=== PATIENT | male | born 1960 | race Caucasian/White ===

== ENCOUNTER 2022-04-06 08:36 | Day surgery (SDC) | payer OTHER ==
[2022-04-06 09:11] LABS: MPV 7.6 fL (7.6-11.3)
[2022-04-06 09:16] LABS: Protime INR 0.96
[2022-04-06 09:21] VITALS: BMI 26.6
--- NOTE | 2022-04-06 12:46 | RAD REPORT ---
EXAM DESCRIPTION: RAD - Myelography C Spine - 04/06/2022 11:16 am CLINICAL HISTORY: M54.12 COMPARISON: No comparisons TECHNIQUE: Patient presents for fluoroscopic assisted cervical myelogram. The procedure, risks and alternatives were discussed with the patient in detail. After answering all questions both oral and written consent were obtained. Patient had no contraindicated allergy or medi cation history. PT/INR/ platelet values were within normal range. The patient is approximately 2 months status post L5-S1 fusion. Design Analyst images show fixation hardware i n place with no suspicious or unexpected finding. Patient was placed in an oblique prone position on the fluoroscopic table. Access site was selected. The skin of the lower back was prepped and draped in the usual sterile fashion. Skin and deeper tissu es were anesthetized with 1% lidocaine. Under fluoroscopic assistance, a 22 gauge spinal needle was a dvanced into the thecal sac at the L3 level. Intrathecal placement was confirmed with clear colorless CSF observed at the needle hub. Approximately 12 mL of Isovue-M 200 contrast material was injected i nto the thecal sac. Needle was withdrawn and sterile bandage placed to the puncture site. Due to patient's previous surgical hardware and limited range of motion, contrast could not be transf erred to the cervical canal wall on the fluoroscopic table. Patient was transferred to the stretcher and placed in Trendelenburg. Procedure was completed without complication. Postprocedure care and precaution instructions were dis cussed with the patient. Patient was transferred to the CT suite for CT imaging. IMPRESSION: Cervical myelogram procedure was performed as detailed. There were no complications. Pat ient was recovering in the same-day surgery area at the time of this dictation. Myelogram findings are incorporated into the CT cervical spine report.
[2022-04-06 14:31] VITALS: O2SAT 99
[2022-04-06 14:32] VITALS: BP 128/76; TEMP 97
--- NOTE | 2022-04-07 09:31 | RAD REPORT ---
EXAM DESCRIPTION: CT - Myelogram C Spine - 04/06/2022 11:36 am CLINICAL HISTORY: M54.12 COMPARISON: No prior imaging the cervical spine available. TECHNIQUE: A myelogram procedure was performed prior to this CT procedure. The myelogram procedure i s separately detailed. Patient was placed in a supine Trendelenburg position to transfer the contrast from the lumbar spine to the cervical spine. Test imaging showed adequate quantity of contrast in th e cervical canal. Axial 2 mm thick images of the cervical spine were obtained and extended to occlude the upper 4 thora cic vertebrae. Sagittal and coronal reconstruction images were generated and reviewed. All CT scans are performed using dose optimization technique as appropriate and may include automated exposure control or mA/KV adjustment according to patient size. FINDINGS: Cervical body height and alignment are normal. There are [address] spanning C3-C7. There is well-healed graft material in the disc spaces from C3-4 through C6-7. Bridging ossif ication fusing the disc levels is identifiable. No hardware fracture or hardware alignment abnormalit y. C2-3 disc level shows a slight loss in disc height. No herniation or disc bulge in the central canal. No foraminal stenosis identified. C3-4 fused level shows no spinal stenosis. No disc or bone spur changes into the central canal. Minim al right foraminal stenosis present from uncovertebral joint hypertrophy. C4-5 fused level shows no central spinal stenosis. No bone spurring encroaching into the central doreen l. Bilateral uncovertebral joint hypertrophy is present causing moderate foraminal stenosis. Facet de generative changes minimal. C5-6 fused level shows no stenosis or significant central canal finding. No significant foraminal sai nosis. C6-7 fused level shows no encroachment into the central canal. No significant foraminal stenosis. C7-T1 level shows loss in height. No central canal encroachment. Focal rounded hypointense area in th e posterior subarachnoid space is air from the myelogram injection. In the cervical canal the cord shows no narrowing or expansile change. No paraspinal mass or hematoma. IMPRESSION: C3-C7 well-healed fusion changes are present. No encroachment into the central canal at the fused disc levels. C4-5 moderate bilateral foraminal stenosis from uncovertebral joint hypertrophy. C3-4 minimal right f oraminal stenosis from uncovertebral joint hypertrophy. Cervical cord shows no narrowing or expansile change.
== END 2022-04-06 14:48 | disposition home or self-care (01) ==
LOC: DS 08:36
PROVIDERS: ATTEND Orthopaedic Surgery
DX: M43.16 Spondylolisthesis, lumbar region (principal); M54.16 Radiculopathy, lumbar region; M54.2 Cervicalgia; M79.602 Pain in left arm; M79.601 Pain in right arm
CPT/HCPCS: 36415; 85049; 85610; 85730; 72126; 62302; Q9966

== ENCOUNTER 2022-04-12 07:04 | Day surgery (SDC) | payer OTHER ==
[2022-04-06 13:53] LABS: Absolute Lymphocytes (CBC) 1.6 K/uL (0.7-4.9); Hematocrit 41.6 % (39.6-49.0); MCV 88.9 fL (80-100); MPV 7.8 fL (7.6-11.3); RBC Red Blood Cell Count 4.68 M/uL (4.33-5.43)
[2022-04-06 14:05] LABS: Potassium 3.7 mmol/L (3.5-5.1)
[2022-04-06 14:59] LABS: Specific Gravity 1.015 (1.005-1.030); Urine Bilirubin Negative (Negative); Urine Blood Negative (Negative); Urine Clarity Clear (Clear); Urine Color Yellow (Yellow); Urine Glucose Negative (Negative); Urine Protein Negative (Negative); Urine pH 6.5 (5.0-7.0)
[2022-04-06 15:00] LABS: Urine Urobilinogen 0.2 mg/dL (0.2-1.0)
--- NOTE | 2022-04-07 15:13 | EKG ---
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
[2022-04-08 12:38] LABS: SARS-CoV-2 Antigen Rapid Res Negative (Negative)
[~2022-04-12 07:04] MED LIST: AMPICILLIN SODIUM 2 GM in NA CHLORIDE 0.9% 100 ML IVPB ONE; Gentamicin Inj 160 MG in NA CHLORIDE 0.9% 100 ML IV SCH
[2022-04-12] MEDS ORDERED: Ringers Lactate 1,000 ML IV ONE (07:42)
[2022-04-12] MEDS ORDERED: propofoL 200 MG/20 ML VIAL IV ONE (08:08)
[2022-04-12] MEDS ORDERED: FENTANYL CITR 100 MCG/2 ML ONE (08:08)
[2022-04-12] MEDS ORDERED: MIDAZOLAM HCL 2 MG/2 ML INJ ONE (08:10)
[2022-04-12] MEDS ORDERED: LIDOCAINE 1% MPF 5 ML VIAL ONE (08:10)
[2022-04-12] MEDS ORDERED: SCOPOLAMINE HYDROBROMIDE PATCH TD ONE (08:14)
[2022-04-12] MEDS ORDERED: dexAMETHasone 10 MG/ML VIAL ONE (09:07)
[2022-04-12] MEDS ORDERED: KETOROLAC 30 MG/ML INJ ONE (09:07)
[2022-04-12] MEDS ORDERED: ONDANSETRON 4 MG/2 ML VIAL ONE (09:22)
[2022-04-12] MEDS ORDERED: NS 0.9% VIAL 10 ML ONE (09:27)
[2022-04-12] MEDS ORDERED: OPIUM/BELLADONNA SUPPOS (30-16.2 MG) PR ONE ×2 (10:18→10:25)
[2022-04-12] MEDS ORDERED: CODEINE 30MG/APAP 300MG TAB PO PRN (10:25)
[2022-04-12] MEDS ORDERED: PHENAZOPYRIDINE 100MG TAB PO ONE (10:25)
[2022-04-12 10:52] VITALS: BP 146/81; TEMP 98.4; O2SAT 99
--- NOTE | 2022-04-12 10:53 | OP ---
Surgeon: DAYTON CHEUNG Preoperative Diagnoses: 1.Benign prostatic hypertrophy with irritative lower urinary tract symptoms. 2.Intravesical bladder calculi. 3.Foreign body intruding into the bladder/urolith reinaldo. Postoperative Diagnoses: 1.Benign prostatic hypertrophy with irritative lower urinary tract symptoms. 2.Intravesical bladder calculi. 3.Foreign body intruding into the bladder/urolith reinaldo. Principal Procedures: 1.Holmium laser removal/excision of the intravesically intruding urolith reinaldo. 2.Removal of bladder calculi and urolith reinaldo from within the bladder. 3.Bipolar transurethral resection of the prostate. Indication For Procedure: Mr. Stephenson presented to the [facility] with persistent irritative lower urinary symptoms and underwent cystoscopic evaluation revealing the presence of intravesical bladder calculi associated with some intruding urolith reinaldo within the bladder lumen. Three reinaldo were noted in the bladder lumen at the 10-11 o'clock position, the 1 o'clock position, and the 7 o'clock p osition. As a result, he was counseled on the need to remove these foreign bodies as they were likel y the source of his irritative urinary symptoms, and since there was residual obstruction due to BPH, I recommended we also manage that. Procedure In Detail: The patient was consented in the preoperative holding area before being transfe rred to the operative suite where general anesthesia was induced. He was given ampicillin 2 g and ge ntamicin 2-3 mg/kg IV antimicrobial prophylaxis, and pneumo boots were provided for DVT prophylaxis. He was placed in the lithotomy position, padded and secured to the table appropriately, and his keiko payton was prepped using Hibiclens. He was draped in standard fashion, and the case was begun using u rethral sounds to dilate the meatus and fossa navicularis to 30-Afghan. I was then able to pass the 26-Afghan resectoscope via the urethra into his bladder with ease. The bladder was surveyed in its e ntirety, and along the bladder neck anteriorly where the first 2 urolith reinaldo identified. As such , using a 365 nm laser fiber and power setting of 1 joule and 15 Hz, I was able to target the staple and its attaching suture, dividing it and releasing the staple into his bladder. This was done for b oth of the anterior reinaldo, and then, I surveyed the remainder of the bladder having difficulty iden tifying the posterior staple using the 30 degree lens. As such, I switched to the cystoscope and a 7 0 degree lens and was able to identify the posterior staple at the 7 o'clock position, kind of imbedd ed just within the intravesical component of the sulcus next to the median lobe. As a result, I was then able to utilize the laser to release this staple from its position in that location and each of those reinaldo were grasped and removed from within his bladder. The subsequent bladder calculi were Ellik evacuated from his bladder and sent for pathologic identification. Because there was some resi dual obstruction noted with significant residual anterior overhang, an intravesically small but proje cting component of a median lobe despite reasonably good lateral lobar retraction from the other urol ith reinaldo, I then replaced the bipolar resectoscope and utilized the bipolar loop to create a amisha nuous anterior channel by resecting the anterior zone of the prostate down to the 2 o'clock and 10 o' clock positions, respectively. This was done to try to preserve his antegrade ejaculation. Once a n ice anterior channel had been created, I surveyed the prostatic fossa with the bladder decompressed, and the intravesically projecting component of the median lobe was still somewhat obstructive in appe arance, so I resected that component of the median lobe just down until it was smooth and no longer o bstructing. No effort was made to complete a full posterior channel resection of the median bar down to the level of the verumontanum in an effort to try to preserve his antegrade ejaculation. I then fulgurated any and all bleeding vessels and Radha evacuated any prostate chips from within his bladde r. Additional fulguration was performed with the bladder decompressed, and when completely hemostati c, I left his bladder full and removed the resectoscope, then replacing it with a 20-Afghan 3-way Fol ey catheter. This was connected to CBI with normal saline and was placed to moderate traction. He w as then taken out of the lithotomy position, awakened from general anesthesia, transferred to a [facility] and then transferred to the recovery room in good condition. Complications: None. Discharge Disposition: He may follow up for catheter removal and voiding trial on and will be discharged with 3 days of antimicrobial. Subsequent followup can be established in about 3 months ' time interval assessment. OLIVIA/TERRY Voice ID: [id number] Report ID: [id number]
[2022-04-12] MEDS ORDERED: CODEINE 30MG/APAP 300MG TAB ONE (11:19)
== END 2022-04-12 12:00 | disposition home or self-care (01) ==
LOC: OR 07:04
PROVIDERS: ATTEND Urology
PROC: 0VT08ZZ Resection of Prostate, Via Natural or Artificial Opening Endoscopic (ICD-10-PCS; principal; 2022-04-12 09:15)
PROC: 0TCB8ZZ Extirpation of Matter from Bladder, Via Natural or Artificial Opening Endoscopic (ICD-10-PCS; 2022-04-12 09:15)
DX: N40.1 Benign prostatic hyperplasia with lower urinary tract symptoms (principal); N21.0 Calculus in bladder; Z20.822 Contact with and (suspected) exposure to COVID-19; I10 Essential (primary) hypertension; I25.10 Atherosclerotic heart disease of native coronary artery without angina pectoris
CPT/HCPCS: 52601; 93005; 87088; 85025; 87086; 80048; 36415 ×2; 88300; 88305; 81003; 87811; 52310; J2704; J1580; J2250; J3010; J1100; J7120; J2405; J0290; A4216; J2001

== ENCOUNTER 2022-09-28 08:36 | Day surgery (SDC) | payer OTHER ==
[2022-09-28 10:00] VITALS: O2SAT 96; BMI 27.3
[2022-09-28 10:10] LABS: MPV 7.7 fL (7.6-11.3)
[2022-09-28 10:19] LABS: Protime INR 1.06
--- NOTE | 2022-09-28 14:20 | RAD REPORT ---
EXAM DESCRIPTION: RAD - Myelography Lumbar - 09/28/2022 12:02 pm CLINICAL HISTORY: Back pain. Leg pain and weakness. Radiculopathy. Lumbar fusion 8 months ago. COMPARISON: None. TECHNIQUE: The procedure, risks and alternatives to the procedure were discussed with the patient in detail. After answering all questions, both oral and written consent were obtained. Time-out procedu re was performed. The patient was placed in an oblique prone position on the fluoroscopic table. The skin of the lower back was prepped and draped in the usual sterile fashion. After anesthetizing the skin and deeper sof t tissues with 1% lidocaine, a 22 gauge needle was advanced into the thecal sac at the right L3-4 lev el. When CSF return was observed, 11 mL of Isovue 200 were injected intrathecally under direct fluoroscop y. Appropriate opacification of the thecal sac was observed. At the conclusion of the procedure the needle was withdrawn and a sterile bandage placed over the pun cture site. The patient tolerated the procedure well without immediate complications. Post-procedure care and precaution instructions were discussed with the patient before the myelography procedure. FINDINGS: Normal opacification of the thecal sac above and below the level of the lumbar puncture. No abnormal contrast column arrest. No significant attenuation of the perineural sleeves, although th is was better evaluated on subsequent CT myelography. IMPRESSION: Successful fluoroscopic guided lumbar myelogram. The patient was transported to the [facility], where a lumbar myelogram was obtained, reported separately.
--- NOTE | 2022-09-28 15:04 | RAD REPORT ---
EXAM DESCRIPTION: CT - Spine Lumbar Wo Con - 09/28/2022 12:02 pm CLINICAL HISTORY: Radiculopathy. myelogram COMPARISON: Myelography Lumbar dated 09/28/2022; Myelogram C Spine dated 04/06/2022 TECHNIQUE: Axial noncontrast CT imaging of the lumbar spine was performed with coronal and sagittal re-formatted images, following intrathecal administration of iodine contrast. Fluoroscopically guided myelogram is reported separately. All CT scans are performed using dose optimization technique as appropriate and may include automated exposure control or mA/KV adjustment according to patient size. FINDINGS: No acute lumbar spine fracture seen. No aggressive marrow pattern. Preserved lumbar lordos is, with grade 1 anterolisthesis of L5 over S1, measuring approximately 3 millimeter. There are postsurgical changes of posterior decompression on the left, and transpedicular screw fusio n at L5-S1. A bone spacer is present at that level, demonstrating mild subsidence along the L5 inferi or endplate on the left. No other significant malalignment. Adequate contrast opacification throughout the lumbar spinal canal. The conus medullaris terminates a t mid L1 level. The cauda equina roots are normal in thickness and distribution. No suspicious intra- axial or extra-axial masses. T12-L1 and L1-2 levels: No disc herniation. No central canal or foraminal stenosis. At L2-3 level: Small right central disc protrusion. No central canal or foraminal stenosis. At L3-4 level: Mild posterior disc bulge. No central canal or foraminal stenosis. At L4-5 level: Mild endplate remodeling. Disc vacuum phenomenon. Central zone small disc protrusion. Right Subarticular through foraminal disc extrusion. Mild effacement of the ventral CSF space. Mild l eft and moderate right neural foraminal narrowing. At L5-S1 level: Broad-based posterior disc bulge, with uncovering of the superior surface of the disc . Right pars interarticularis defect. No central canal stenosis. Mild bilateral neural foraminal narr owing predominantly due to endplate remodeling. Paraspinous soft tissues are unremarkable. Visualized intra- abdominal structures are unremarkable apart from mild atherosclerotic calcification s of the abdominal aorta. IMPRESSION: Lumbar CT myelogram demonstrates no high-grade canal oasis. Postsurgical changes of posterior decompression and fusion at L5-S1 as above. Disc disease at L3-4, including a right subarticular to foraminal disc extrusion contributing to mode rate right neural foraminal narrowing. Other mild degenerative changes as above contributing to mild bilateral neural foraminal narrowing at L5-S1 and left mild neural foraminal narrowing at L4-5.
[2022-09-28 16:43] VITALS: BP 114/69; TEMP 97.6
== END 2022-09-28 15:47 | disposition home or self-care (01) ==
LOC: DS 08:36
PROVIDERS: ATTEND Orthopaedic Surgery
DX: M54.16 Radiculopathy, lumbar region (principal)
CPT/HCPCS: 36415; 62304; 72131; 85049; 85610; 85730

== ENCOUNTER 2023-10-04 18:43 | Inpatient (IN) | payer OTHER ==
[2023-10-04 19:24] LABS: Absolute Lymphocytes (CBC) 1.3 K/uL (0.7-4.9); Hematocrit 45.2 % (39.6-49.0); Lymphocytes % 5.7 % (15.3-44.8); MCV 77.3 fL (80-100); MPV 7.6 fL (7.6-11.3); Platelets 332 thou/uL (152-406); RBC Red Blood Cell Count 5.85 M/uL (4.33-5.43)
[2023-10-04] MEDS ORDERED: CEFTRIAXONE 1000 MG/VIAL ONE (19:27)
--- NOTE | 2023-10-04 19:27 | ER ---
Nurse's Notes [facility] [place] Name: Jerilyn Stephenson Age: 62 yrs Sex: Male : 1960 Arrival Date: 10/04/2023 Time: 18:43 Bed 19 Private MD: Diagnosis: Sepsis, unspecified organism;Pyelonephritis acute Presentation: 10/04 18:55 Chief complaint: Chief complaint: Patient states: SENT BY PCP FOR ELEVATED WBC AND db ELVATED LIVER ENZYMES STATES ABDOMEN SWELLING X 5 DAYS UNABLE TO KEEP FOOD DOWN. EATS THEN VOMITS AFTER EVERY ATTEMPT TO EAT. 19:05 Coronavirus screen: Client denies travel out of the [place] in the last 14 days. At this db time, the client does not indicate any symptoms associated with coronavirus-19. Ebola Screen: Patient negative for fever greater than or equal to 101.5 degrees Fahrenheit, and additional compatible Ebola Virus Disease symptoms Patient denies exposure to infectious person. Patient denies travel to an Ebola-affected area in the 21 days before illness onset. No symptoms or risks identified at this time. Initial Sepsis Screen: Does the patient meet any 2 criteria? No. Patient's initial sepsis screen is negative. Does the patient have a suspected source of infection? No. Patient's initial sepsis screen is negative. Risk Assessment: Do you want to hurt yourself or someone else? Patient reports no desire to harm self or others. Onset of symptoms was September 29, 2023. 19:05 Method Of Arrival: Ambulatory db 19:05 Acuity: LIA 2 db Triage Assessment: 19:07 General: Appears in no apparent distress. uncomfortable, Behavior is calm, cooperative. db Pain: Complains of pain in abdomen. Neuro: Level of Consciousness is awake, alert, obeys commands, Oriented to person, place, time, situation. Respiratory: Airway is patent Respiratory effort is even, unlabored, Respiratory pattern is regular, symmetrical. GI: Abdomen is round distended, Reports bloating, vomiting. Historical: - Allergies: 19:07 tramadol; db - Immunization history:: Adult Immunizations unknown. - Social history:: Smoking status: unknown. Screenin:21 [facility] ED Fall Risk Assessment (Adult) History of falling in the last 3 months, cp4 including since admission No falls in past 3 months (0 pts) Confusion or Disorientation No (0 pts) Intoxicated or Sedated No (0 pts) Impaired Gait No (0 pts) Mobility Assist Device Used No (0 pt) Altered Elimination No (0 pt) Score/Fall Risk Level 0 - 2 = Low Risk Oriented to surroundings, Maintained a safe environment, Educated pt \T\ family on fall prevention, incl call for assistance when getting out of bed, Assessed \T\ reinforced patient's understanding of fall precautions, Hourly rounding (assess needs \T\ fall precautionary measures) done. Abuse screen: Denies threats or abuse. Nutritional screening: No deficits noted. Tuberculosis screening: No symptoms or risk factors identified. Assessment: 20:21 General: Appears in no apparent distress. Behavior is calm, cooperative, appropriate cp4 for age. Pain: Denies pain. Vital Signs: 19:05 BP 140 / 76; Pulse 101; Resp 18; Temp 99.3(O); Pulse Ox 100% ; Weight 79.38 kg; Height db 5 ft. 8 in. ; 20:00 BP 136 / 80; Pulse 92; Resp 18; Pulse Ox 100% ; cp4 21:00 BP 131 / 77; Pulse 87; Resp 18; Pulse Ox 100% ; cp4 19:05 Body Mass Index 26.61 (79.38 kg, 172.72 cm) db ED Course: 18:49 Patient arrived in ED. ae5 18:49 Gerald Sanchez MD is Attending Physician. ec2 18:49 [facility] Baneg[facility]C [facility]. kb 18:55 Arm band placed on Patient placed in an exam room. db 19:03 Anitha Greenberg is Primary Nurse. cp4 19:07 Triage completed. db 19:26 Rosas Hogan MD is Hospitalizing Provider. ec2 20:00 Inserted saline lock: 20 gauge in left antecubital area, using aseptic technique. Blood ha1 collected. 20:21 Bed in low position. Call light in reach. Side rails up X 1. cp4 21:34 Abdomen Exam Limited In Process Unspecified. EDMS Administered Medications: 19:40 Drug: Rocephin IV 1 grams IV at calculated rate once; Given slow IV push per pharmacy cp4 instructions Route: IV; Rate: calculated rate; Site: right antecubital; 20:15 Follow up: Response: No adverse reaction; IV Status: Completed infusion cp4 20:21 Follow up: Response: No adverse reaction cp4 20:15 Drug: metoCLOPramide IVP 10 mg IVP once; over 1 to 2 minutes Route: IVP; Site: right cp4 antecubital; 20:21 Follow up: Response: No adverse reaction cp4 20:15 Drug: NS 0.9% IV 1000 ml IV at 1 bolus Per protocol; 1000 mL bolus Route: IV; Rate: 1 cp4 bolus; Site: right antecubital; Medication: 20:21 VIS not applicable for this client. cp4 Outcome: 19:26 Decision to Hospitalize by Provider. ec2 10/05 13:54 Patient left the ED. ld1 Signatures: Dispatcher [employer] EDMS Nasrin Banegas, MELINDA-C GRANITE WORKER-Theresa Sandoval RN RN ld1 Shanon Dobson RN RN ha1 Verito aGrner RN RN db Gerald Sanchez MD MD 2 Anitha Greenberg cp4 Janice Malave ae5 Corrections: (The following items were deleted from the chart) 10/04 19:07 18:55 Chief complaint: db db
--- NOTE | 2023-10-04 19:27 | EDPHYS ---
Physician Documentation [facility] [place] Name: Jerilyn Stephenson Age: 62 yrs Sex: Male : 1960 Arrival Date: 10/04/2023 Time: 18:43 Bed 19 Private MD: ED Physician Gerald Sanchez HPI: 10/04 18:54 This 62 yrs old Male presents to ER via Unassigned with complaints of ec2 Abnormal Lab Results. 18:54 Patient was sent in from primary care due to concern for pyelonephritis and abdominal ec2 pain. Patient reportedly been having some abdominal pain, outpatient lab work and imaging showed an elevated white blood cell count and perinephric stranding. I personally spoke with PCP prior to patient arrival. Historical: - Allergies: 19:07 tramadol; db - Immunization history:: Adult Immunizations unknown. - Social history:: Smoking status: unknown. ROS: 18:54 Constitutional: as per hpi ec2 Exam: 19:09 Constitutional: GEN: NAD Head: atraumatic Eyes: EOMI Ears: External ears are ec2 normal. CV: regular rate LUNGS: no respiratory distress ABD: non-distended, soft, no guarding, not rigid SKIN: no evidence of rashes MSK: no evidence of trauma NEURO: moves all extremities equally Vital Signs: 19:05 BP 140 / 76; Pulse 101; Resp 18; Temp 99.3(O); Pulse Ox 100% ; Weight 79.38 kg; Height db 5 ft. 8 in. ; 20:00 BP 136 / 80; Pulse 92; Resp 18; Pulse Ox 100% ; cp4 21:00 BP 131 / 77; Pulse 87; Resp 18; Pulse Ox 100% ; cp4 19:05 Body Mass Index 26.61 (79.38 kg, 172.72 cm) db MDM: 18:53 Patient medically screened. ec2 18:54 ED course: Patient arrives today due to concern for abdominal pain along with abnormal ec2 findings on outpatient workup. Will repeat lab work, give empiric antibiotic therapy and admit the patient due to concern for pyelonephritis. External lab work reviewed by myself, shows metabolic profile has elevated liver enzymes with ALT of 772 and AST at 217. CBC that showed a WBC of 22,000. CT imaging that shows mild bilateral perinephric stranding and trace free fluid in the retroperitoneal compartments.. 19:24 ED course: EKG independently reviewed and interpreted by me, shows normal sinus rhythm, ec2 rate of 94, no acute ST segment elevations, nonconcerning intervals.. 19:25 Data reviewed: vital signs. 2 10/04 18:52 Order name: CBC with Diff; Complete Time: 23:09 ec2 10/04 18:52 Order name: CMP; Complete Time: 23:09 ec2 10/04 18:52 Order name: Lipase; Complete Time: 23:09 ec2 10/04 18:52 Order name: Blood Culture Adult (2) ec2 10/04 18:52 Order name: Lactate w/ 2H reflex if indic.; Complete Time: 23:09 ec2 10/04 18:52 Order name: Protime (+inr); Complete Time: 19:56 ec2 10/04 18:52 Order name: Ptt, Activated; Complete Time: 19:56 ec2 10/04 18:55 Order name: UAM ec2 10/04 19:48 Order name: Glucose, Ancillary Testing; Complete Time: 19:56 EDGA 10/04 20:24 Order name: Manual Differential; Complete Time: 23:09 EDMS 10/04 20:54 Order name: Urinalysis w/ reflexes EDGA 10/04 20:54 Order name: CBC with Automated Diff EDGA 10/04 20:54 Order name: CBC with Automated Diff EDGA 10/04 20:54 Order name: Comprehensive Metabolic Panel EDGA 10/04 20:54 Order name: Comprehensive Metabolic Panel EDGA 10/04 20:54 Order name: Magnesium EDGA 10/04 20:54 Order name: Magnesium EDGA 10/04 21:01 Order name: Acute Hepatitis Panel EDGA 10/05 00:02 Order name: Lactate Sepsis 2 HR Follow-up EDGA 10/04 21:10 Order name: Abdomen Exam Limited; Complete Time: 23:09 EDGA 10/04 18:52 Order name: EKG; Complete Time: 18:52 2 10/04 20:54 Order name: CONS Physician Consult EDGA 10/04 18:52 Order name: IV Saline Lock; Complete Time: 19:34 ec2 10/04 18:52 Order name: Labs collected and sent; Complete Time: 19:34 ec2 10/04 18:52 Order name: Accucheck; Complete Time: 19:34 ec2 10/04 18:52 Order name: Cardiac monitoring; Complete Time: 19:34 ec2 10/04 18:52 Order name: EKG - Nurse/Tech; Complete Time: 19:34 ec2 10/04 18:52 Order name: IV Saline Lock - Large Bore; Complete Time: 19:34 ec2 10/04 18:52 Order name: O2 Per Protocol; Complete Time: 19:34 ec2 10/04 18:52 Order name: O2 Sat Monitoring; Complete Time: 19:34 ec2 10/04 18:52 Order name: Vital Signs; Complete Time: 19:34 ec2 Administered Medications: 19:40 Drug: Rocephin IV 1 grams IV at calculated rate once; Given slow IV push per pharmacy cp4 instructions Route: IV; Rate: calculated rate; Site: right antecubital; 20:15 Follow up: Response: No adverse reaction; IV Status: Completed infusion cp4 20:21 Follow up: Response: No adverse reaction cp4 20:15 Drug: metoCLOPramide IVP 10 mg IVP once; over 1 to 2 minutes Route: IVP; Site: right cp4 antecubital; 20:21 Follow up: Response: No adverse reaction cp4 20:15 Drug: NS 0.9% IV 1000 ml IV at 1 bolus Per protocol; 1000 mL bolus Route: IV; Rate: 1 cp4 bolus; Site: right antecubital; Disposition Summary: 10/04/23 19:26 Hospitalization Ordered Notes: Hospitalization Status: Inpatient Admission ec2 Provider: Rosas Hogan ec2 Condition: Stable ec2 Problem: new ec2 Symptoms: are unchanged ec2 Bed/Room Type: Standard ec2 Location: Telemetry/MedSurg (Inpatient)(10/05/23 12:22) as6 Room Assignment: [facility](10/05/23 12:22) as6 Diagnosis - Sepsis, unspecified organism ec2 - Pyelonephritis acute ec2 Forms: - Medication Reconciliation Form ec2 - SBAR form ec2 - Leadership Thank You Letter ec2 Critical care time excluding procedures: 19:25 Critical care time: Bedside Care: 30 minutes. Total time: 30 minutes ec2 Signatures: Dispatcher [employer] Nasrin Santillan, CONNIE LAWRENCE-Capo Peterson RN RN as6 Verito Garner RN Katina Carranza rv1 Gerald Sanchez MD MD ec2 Anitha Greenberg cp4 Corrections: (The following items were deleted from the chart) 19: 18:54 ED course: Patient arrives today due to concern for abdominal pain along with ec2 abnormal findings on outpatient workup. Will repeat lab work, give empiric antibiotic therapy and admit the patient due to concern for pyelonephritis.. ec2 20: 19:26 Telemetry/MedSurg (Inpatient) ec2 rv1 20:10 19:26 ec2 rv1 10/05 12:22 10/04 20:10 [facility] ER HOLD rv1 as6 10/05 12:22 10/04 20:10 ERHOLD- rv1 as6
[2023-10-04 19:29] LABS: Protime INR 0.99
[2023-10-04 19:49] LABS: Bilirubin Total 0.7 mg/dL (0.2-1.0); Potassium 4.2 mEq/L (3.5-5.1)
[2023-10-04] MEDS ORDERED: METOCLOPRAMIDE 10 MG/2mL INJ ONE (20:11)
[2023-10-04] MEDS ORDERED: NA CHLORIDE 0.9% 1,000 ML ONE (20:12)
[2023-10-04 20:24] LABS: Blood Morphology Comment NOT SEEN (NOT SEEN); Platelet Estimate ADEQ
[2023-10-04] MEDS: D5.45NS W/KCL 20MEQ 1,000 ML IV SCH (21:00)
[2023-10-04] MEDS ORDERED: SODIUM CHLORIDE 0.9% 10ML INJ IV PRN (21:01)
--- NOTE | 2023-10-04 21:42 | RAD REPORT ---
EXAM DESCRIPTION: US - Abdomen Exam Limited - 10/04/2023 9:33 pm CLINICAL HISTORY: elevated liver enzymes COMPARISON: No comparisons TECHNIQUE: Sonographic grayscale and color flow images of the right upper abdominal quadrant were o btained. FINDINGS: The gallbladder demonstrates no gallstones. No pericholecystic fluid or gallbladder wall t hickening. The common bile duct is normal measuring 4 mm. The liver demonstrates no findings of intrahepatic biliary dilatation. IMPRESSION: Unremarkable examination.
--- NOTE | 2023-10-04 22:14 | P.HP ---
Certification for Inpatient Patient admitted to: Inpatient With expected LOS: >2 Midnights Practitioner: I am a practitioner with admitting privileges, knowledge of patient current condition, hospital course, and medical plan of care. Services: Services provided to patient in accordance with Admission requirements found in Title 42 Section 412.3 of the Code of Federal Regulations Patient History Date of Service: 10/04/23 Reason for admission: Pyelonephritis History of Present Illness: 62-year-old male with a history of CAD s/p 2 stents presenting to ED by his PCP for elevated white count. Patient had initially presented to his PCP due to 5 days of intractable hiccups he was discharged on Reglan and baclofen however hiccups have persisted. He was also treated with amoxicillin and 5 days of fluconazole for oral thrush. Blood work was done today at PCPs office showed leukocytosis. The hiccups has been associated with decreased oral intake due to nausea and vomiting and severe abdominal spasms. Patient also complained of difficulty swallowing, abdominal distention and some leg swelling. He does not smoke or drink. On arrival to the ED his vital signs were within normal limits. Lab work showed WBC 22, MCV 77, Na 133, Cr 1.3, lactic acid 2.3, AST 210 ALT 77, lipase [address] abdomen and pelvis outpatient has showed bilateral perinephric stranding, moderate hiatal hernia and moderate stool. Allergies tramadol Allergy (Verified 11/22/22 09:53) Itching/Hives/Rash Home Medications: Losartan Potassium [Cozaar] 100 mg PO NOON 04/08/22 Metoprolol Succinate 100 mg PO NOON 04/08/22 Montelukast [Singulair*] 10 mg PO NOON 04/08/22 Rosuvastatin Calcium 40 mg PO NOON 04/08/22 Ticagrelor [Brilinta] 60 mg PO BID 11/07/22 - Past Medical/Surgical History Has patient received pneumonia vaccine in the past: No - Social History Smoking Status: Never smoker Review of Systems 10-point ROS is otherwise unremarkable Physical Examination - Vital Signs Temperature: 99.3 F Blood Pressure: 140/76 Pulse: 110 Respirations: 18 Pulse Ox (%): 100 - Physical Exam General: Alert, Oriented x3, Mild distress HEENT: Atraumatic, Normocephalic, Mucous membr. moist/pink Neck: Supple, JVD not distended Respiratory: Clear to auscultation bilaterally, Normal air movement Cardiovascular: No edema, Normal S1 S2 Gastrointestinal: Normal bowel sounds, Distended, Tenderness Musculoskeletal: No swelling, No erythema, No tenderness Integumentary: No rashes, No warmth, Erythema Neurological: Normal speech, Normal strength at 5/5 x4 extr - Studies Laboratory Data (last 24 hrs) 10/04/23 10/04/23 10/04/23 19:15 19:15 19:15 WBC 22.20 H Hgb 14.4 Hct 45.2 Plt Count 332 PT 10.9 INR 0.99 APTT 21.4 L Sodium 133 L Potassium 4.2 BUN 16 Creatinine 1.33 H Glucose 149 H Total Bilirubin 0.7 AST 210 H ALT 710 H Alkaline Phosphatase 35 L Lipase 90 H Assessment and Plan - Plan Sepsis Acute pyelonephritis Elevated liver enzymes Intractable hiccups Dysphagia CAD with stent Hypertension Plan Admit to inpatient Continue IV Zosyn and IV fluid Follow-up blood and urine cultures Abdominal ultrasound and hepatitis panel GI consult Start Thorazine for hiccups Clear liquid diet and advance as tolerated Antiemetics and PPI - Advance Directives Does patient have a Living Will: No Does patient have a Durable POA for Healthcare: No
[2023-10-04 22:22] VITALS: BMI 26.6
[2023-10-04] MEDS: PIPER TAZO 3.375 GM in NA CHLORIDE 0.9% 100 ML IV SCH (22:30)
[2023-10-04] MEDS: CHLORPROMAZINE 25 MG TAB PO SCH (22:30)
[2023-10-04] MEDS ORDERED: NA CHLORIDE 0.9% 100 ML ONE (23:04)
[2023-10-04] MEDS ORDERED: PIPERACIL/TAZO 3.375 GM VIAL IV ONE (23:04)
[2023-10-04] MEDS ORDERED: D5.45NS W/KCL 20MEQ 0 ML IV ONE (23:04)
[2023-10-04] MEDS: D5 0.45 NS 1,000 ML IV SCH (23:45)
[2023-10-05] MEDS ORDERED: D5 0.45 NS 1,000 ML IV ONE ×2 (00:09→08:19)
[2023-10-05 03:05] LABS: Specific Gravity 1.005 (1.005-1.030); Urine Bacteria <20 /HPF (<20); Urine Bilirubin NEGATIVE (Negative); Urine Blood Negative (Negative); Urine Clarity Clear (Clear); Urine Color Colorless (Yellow); Urine Glucose NEGATIVE (Negative); Urine Protein NEGATIVE (Negative); Urine RBC None Seen /HPF (None Seen); Urine Urobilinogen Normal (Normal)
[2023-10-05 04:20] LABS: Absolute Lymphocytes (CBC) 1.2 K/uL (0.7-4.9); Hematocrit 42.7 % (39.6-49.0); Lymphocytes % 7.1 % (15.3-44.8); MCV 77.2 fL (80-100); MPV 7.5 fL (7.6-11.3); Platelets 321 thou/uL (152-406); RBC Red Blood Cell Count 5.53 M/uL (4.33-5.43)
[2023-10-05 04:33] LABS: Albumin 2.9 g/dL (3.4-5.0); Bilirubin Total 0.8 mg/dL (0.2-1.0); Magnesium 2.7 mg/dL (1.6-2.4); Potassium 4.3 mEq/L (3.5-5.1); Protein, Total 6.7 g/dL (6.4-8.2)
[2023-10-05] MEDS ORDERED: NA CHLORIDE 0.9% 100 ML ONE ×2 (05:10→08:19)
[2023-10-05] MEDS ORDERED: PIPERACIL/TAZO 3.375 GM VIAL IV ONE ×2 (05:10→08:19)
[2023-10-05 05:46] LABS: Hepatitis B Core IgM Nonreactive (Nonreactive); Hepatitis B surface AG Interp. Nonreactive (Nonreactive); Hepatitis C Virus Ab Nonreactive (Nonreactive)
[2023-10-05] MEDS ORDERED: PANTOPRAZOLE 40 MG INJ ONE (08:17)
[2023-10-05] MEDS: PANTOPRAZOLE 40 MG INJ IVP SCH (08:35)
[2023-10-05] MEDS: PIPER TAZO 3.375 GM in NA CHLORIDE 0.9% 100 ML IV SCH (09:06)
--- NOTE | 2023-10-05 16:06 | EKG ---
Test Date: 2023-10-04 Test Time: 19:22:19 Senior Animal Trainer: TAD MEASUREMENT RESULTS: Intervals: Rate: 94 MD: 138 QRSD: 80 QT: 334 QTc: 417 Voca: P: 74 MD: 138 QRS: 69 T: 28 INTERPRETIVE STATEMENTS: Normal sinus rhythm Normal ECG Compared to ECG 04/06/2022 14:04:27 No significant changes Electronically Signed On 10-05-23 16:04:35 SILK SCREEN ETCHER by Arias Jimenez
[2023-10-05] MEDS: ONDANSETRON 4 MG/2 ML VIAL IV PRN (19:46)
[2023-10-05] MEDS: CHLORPROMAZINE 25 MG TAB PO SCH (19:51)
[2023-10-06 06:46] LABS: Hematocrit 41.9 % (39.6-49.0); Lymphocytes % 7.1 % (15.3-44.8); MCV 78.2 fL (80-100); MPV 7.5 fL (7.6-11.3); Platelets 286 thou/uL (152-406); RBC Red Blood Cell Count 5.35 M/uL (4.33-5.43)
[2023-10-06 07:12] LABS: Albumin 2.7 g/dL (3.4-5.0); Bilirubin Total 0.7 mg/dL (0.2-1.0); Magnesium 2.4 mg/dL (1.6-2.4); Potassium 4.4 mEq/L (3.5-5.1); Protein, Total 6.2 g/dL (6.4-8.2); Thyroid Stimulating Hormone 0.442 uIU/mL (0.358-3.740)
--- NOTE | 2023-10-06 07:24 | P.PN ---
Subjective Date of Service: 10/06/23 Chief Complaint: Pyelonephritis Reported anxiety, as needed Ativan given for MRCP, reports back spasms, resume home baclofen - Physical Exam General: Alert, Oriented x3, Mild distress HEENT: Atraumatic, Normocephalic, Mucous membr. moist/pink Neck: Supple, JVD not distended Respiratory: Clear to auscultation bilaterally, Normal air movement Cardiovascular: No edema, Normal S1 S2 Gastrointestinal: Normal bowel sounds, Distended, Tenderness Musculoskeletal: No swelling, No erythema, No tenderness Integumentary: No rashes, No warmth, Erythema Neurological: Normal speech, Normal strength at 5/5 x4 extr Review of Systems per HPI Physical Examination - Vital Signs Temperature: 98.3 F Blood Pressure: 158/83 Pulse: 101 Respirations: 20 Pulse Ox (%): 96 Assessment And Plan - Plan Assessment plan Sepsis without hypotension, likely secondary to acute pyelonephritis Nausea vomiting IV fluids, IV antibiotics, Zosyn, PPI, as needed Zofran for nausea CT abdomen and pelvis outpatient has showed bilateral perinephric stranding, moderate hiatal hernia and moderate stool. Blood cultures, urine cultures Elevated liver enzymes MRCP, trend liver GI consult Abdominal ultrasound The liver demonstrates no findings of intrahepatic biliary dilatation. IMPRESSION: Unremarkable examination Hepatitis panel nonreactive AST 211, 279 ALT 710 930 Acute on chronic kidney injury unknown baseline BUN 13 creatinine 1.33 Gentle IV fluids Intractable hiccups Thorazine Dysphagia Speech eval Microcytic anemia Trend H&H hemoglobin 13.2 CAD with stent Hypertension Resume appropriate home Plan Admit to inpatient Continue IV Zosyn and IV fluid Follow-up blood and urine cultures Diet Clear liquid diet and advance as tolerated Full code DVT lovenox Discharge Plan: Home - Code Status/Comfort Care Code Status: Full Code Critical Care: No Time Spent Managing PTS Care (In Minutes): 35
[2023-10-06] MEDS: LORAZEPAM 1 MG TABLET PO ONE ×2 (08:17→09:17)
[2023-10-06] MEDS: BACLOFEN 10 MG TAB PO ONE (08:36)
[2023-10-06 08:54] LABS: Hepatitis B Core IgM Nonreactive (Nonreactive); Hepatitis B surface AG Interp. Nonreactive (Nonreactive); Hepatitis C Virus Ab Nonreactive (Nonreactive)
[2023-10-06] MEDS ORDERED: LORazepam 2 MG/ML VIAL IV ONE (09:10)
[2023-10-06] MEDS: FLUMAZENIL 0.1 MG/ML (5 mL VIAL) IV ONE (14:13)
[2023-10-06] MEDS ORDERED: HOME MED 1 EA UNK (Losartan Potassium [Cozaar] 100 MG Tablet) PO SCH (14:47)
[2023-10-06] MEDS ORDERED: METOPROLOL TARTRATE 5 MG/5 ML INJ IV STA (14:54)
[2023-10-06] MEDS: METOPROLOL XL 100 MG TAB PO SCH (16:18)
[2023-10-06] MEDS: LOSARTAN POTASSIUM 50 MG TABLET PO SCH (16:18)
[2023-10-06] MEDS: MONTELUKAST 10 MG TAB PO SCH (16:19)
--- NOTE | 2023-10-06 17:26 | RAD REPORT ---
EXAM DESCRIPTION: MRI - Cholangiogram - 10/06/2023 1:28 pm CLINICAL HISTORY: cholecocholithiasis COMPARISON: Abdomen Exam Limited dated 10/04/2023 TECHNIQUE: Multiplanar multisequence MRI of the abdomen, obtained without IV contrast, utilizing M MANAGER APPLICATION sequences. FINDINGS: Normally distended gallbladder, with no filling defects to suggest gallstones. Motion artifact limits evaluation. No intrahepatic biliary ductal dilation appreciated. Common bile duct is normal in caliber, 1-2 millimeter. No filling defects to suggest choledocholithia sis allowing for motion artifact. Smooth tapering at the ampulla. Main pancreatic duct is not dilated . The visualized aspects of the liver, spleen, adrenal glands, and pancreas are unremarkable. Mild bila teral perinephric edema, nonspecific. Visualized aspects of the bowel are unremarkable. No suspicious osseous lesions. Trace perihepatic fluid. IMPRESSION: Normal MR cholangiogram, allowing for the degree of motion artifact present. Normal appearance of the gallbladder. Nonspecific trace perihepatic and perinephric fluid.
[2023-10-06 17:40] LABS: SARS-COV-2 RT PCR NEGATIVE (NEGATIVE)
--- NOTE | 2023-10-06 17:47 | P.PN ---
Date of Service: 10/05/23 Subjective Patient is looking better. He still has issues with his hiccups which become uncontrolled at times. Otherwise, no complaints. Physical Examination - Vital Signs Reviewed - Physical Exam General: Alert, Oriented x3, Mild distress Respiratory: Clear to auscultation bilaterally, Normal air movement Cardiovascular: No edema, Normal S1 S2 Gastrointestinal: Normal bowel sounds, Distended, Tenderness Musculoskeletal: No swelling, No erythema, No tenderness Integumentary: No rashes, No warmth, Erythema Neurological: No focal deficits Assessment and Plan - Assessment Assessment 1. Acute pyelonephritis 2. Acute hepatitis 3. Uncontrolled hypertension 4. - Plan Plan Admit to inpatient Continue IV Zosyn and IV fluid Follow-up blood and urine cultures Abdominal ultrasound and hepatitis panel GI consult Start Thorazine for hiccups Clear liquid diet and advance as tolerated Antiemetics and PPI - Advance Directives Does patient have a Living Will: No Does patient have a Durable POA for Healthcare: No
[2023-10-06] MEDS: NA CHLORIDE 0.9% 500 ML IV ONE (18:12)
[2023-10-06] MEDS: TICAGRELOR 60 MG PO SCH (21:00)
[2023-10-06] MEDS: PANTOPRAZOLE 40MG TABLET PO SCH (21:32)
[2023-10-06] MEDS: BACLOFEN 10 MG TAB PO PRN (21:32)
[2023-10-06] MEDS: MORPHINE 2 MG/ML SYR IV PRN (23:01)
[2023-10-07 07:41] LABS: Bilirubin Direct 0.6 mg/dL (0-0.2); Bilirubin Indirect, Calculated 0.5 mg/dL (0.2-0.8); Bilirubin Total 1.1 mg/dL (0.2-1.0); Protein, Total 6.7 g/dL (6.4-8.2)
--- NOTE | 2023-10-07 08:22 | P.PN ---
Subjective Date of Service: 10/07/23 Chief Complaint: Pyelonephritis Reported nausea, abdominal tenerness, anxiety, reports back spasms, resume home baclofen - Physical Exam General: Alert, Oriented x3, Mild distress HEENT: Atraumatic, Normocephalic, Mucous membr. moist/pink Neck: Supple, JVD not distended Respiratory: Clear to auscultation bilaterally, Normal air movement Cardiovascular: No edema, Normal S1 S2 Gastrointestinal: Normal bowel sounds, Distended, Tenderness Musculoskeletal: No swelling, No erythema, No tenderness Integumentary: No rashes, No warmth, Erythema Neurological: Normal speech, Normal strength at 5/5 x4 extr Review of Systems per HPI Physical Examination - Vital Signs Temperature: 97.9 F Blood Pressure: 144/86 Pulse: 98 Respirations: 20 Pulse Ox (%): 95 Assessment And Plan - Plan Assessment plan Sepsis without hypotension, likely secondary to acute pyelonephritis Nausea vomiting IV fluids, IV antibiotics, Zosyn, PPI, as needed Zofran for nausea CT abdomen and pelvis outpatient has showed bilateral perinephric stranding, moderate hiatal hernia and moderate stool. Blood cultures, urine cultures Abdominal pain with nausea Transaminitis Elevated liver enzymes MRCP IMPRESSION: Normal MR cholangiogram, allowing for the degree of motion artifact present. Normal appearance of the gallbladder. Nonspecific trace perihepatic and perinephric fluid. trend liver enzymes GI consult Abdominal ultrasound The liver demonstrates no findings of intrahepatic biliary dilatation. IMPRESSION: Unremarkable examination Hepatitis panel nonreactive AST 211, 279, 250 ALT 710 930, 1062 Acute on chronic kidney injury unknown baseline BUN 13 creatinine 1.33 Gentle IV fluids Intractable hiccups Thorazine Dysphagia Speech eval Microcytic anemia Trend H&H hemoglobin 13.2 CAD with stent Hypertension Resume appropriate home Diet Clear liquid diet and advance as tolerated Full code DVT lovenox Discharge Plan: Home - Code Status/Comfort Care Code Status: Full Code Critical Care: No Time Spent Managing PTS Care (In Minutes): 35
[2023-10-07] MEDS: D5 0.45 NS 1,000 ML IV SCH (09:47)
[2023-10-07 11:55] LABS: Hematocrit 43.6 % (39.6-49.0); Lymphocytes % 6.9 % (15.3-44.8); MCV 78.2 fL (80-100); MPV 7.6 fL (7.6-11.3); Platelets 297 thou/uL (152-406); RBC Red Blood Cell Count 5.58 M/uL (4.33-5.43)
[2023-10-07 11:57] LABS: Protime INR 1.2
[2023-10-07 11:58] LABS: Albumin 2.9 g/dL (3.4-5.0); Phosphorus 3.6 mg/dL (2.5-4.9); Potassium 4.1 mEq/L (3.5-5.1); Protein, Total 6.6 g/dL (6.4-8.2)
[2023-10-07] MEDS ORDERED: HOME MED 1 EA UNK (Rosuvastatin Calcium [Rosuvastatin Calcium] 20 MG Tablet) PO SCH (12:00)
[2023-10-07] MEDS ORDERED: MONTELUKAST 10 MG TAB PO SCH (12:00)
[2023-10-07] MEDS ORDERED: MONTELUKAST 10 MG PO SCH (12:00)
[2023-10-07] MEDS: NA CHLORIDE 0.9% 500 ML IV ONE (16:59)
[2023-10-08 06:41] LABS: Absolute Lymphocytes (CBC) 1.2 K/uL (0.7-4.9); Hematocrit 47.8 % (39.6-49.0); Lymphocytes % 7.2 % (15.3-44.8); MCV 78.6 fL (80-100); MPV 7.6 fL (7.6-11.3); Platelets 315 thou/uL (152-406); RBC Red Blood Cell Count 6.08 M/uL (4.33-5.43)
[2023-10-08 07:28] LABS: Albumin 2.8 g/dL (3.4-5.0); Bilirubin Total 1.3 mg/dL (0.2-1.0); Magnesium 2.6 mg/dL (1.6-2.4); Potassium 4.9 mEq/L (3.5-5.1); Protein, Total 6.9 g/dL (6.4-8.2)
[2023-10-08 07:58] LABS: Blood Morphology Comment NOT SEEN (NOT SEEN); Platelet Estimate ADEQ; Platelets, Giant NOTED; White Blood Cell Scan OK (OK)
--- NOTE | 2023-10-08 08:11 | P.PN ---
Subjective Date of Service: 10/08/23 Chief Complaint: Pyelonephritis Reported nausea, abdominal tenerness, anxiety, reports back spasms, resume home baclofen - Physical Exam General: Alert, Oriented x3, Mild distress HEENT: Atraumatic, Normocephalic, Mucous membr. moist/pink Neck: Supple, JVD not distended Respiratory: Clear to auscultation bilaterally, Normal air movement Cardiovascular: No edema, Normal S1 S2 Gastrointestinal: Normal bowel sounds, Distended, Tenderness Musculoskeletal: No swelling, No erythema, No tenderness Integumentary: No rashes, No warmth, Erythema Neurological: Normal speech, Normal strength at 5/5 x4 extr Review of Systems per HPI Physical Examination - Vital Signs Temperature: 98.5 F Blood Pressure: 128/69 Pulse: 74 Respirations: 16 Pulse Ox (%): 96 Assessment And Plan - Plan Assessment plan Sepsis without hypotension, likely secondary to acute pyelonephritis improving Nausea vomiting improved IV fluids, IV antibiotics, Zosyn, PPI, as needed Zofran for nausea CT abdomen and pelvis outpatient has showed bilateral perinephric stranding, moderate hiatal hernia and moderate stool. Blood cultures, urine cultures Abdominal pain with nausea improved Transaminitis Acute hepatitis with elevated liver enzyme Elevated liver enzymes MRCP IMPRESSION: Normal MR cholangiogram, allowing for the degree of motion artifact present. Normal appearance of the gallbladder. Nonspecific trace perihepatic and perinephric fluid. trend liver enzymes GI consult Abdominal ultrasound The liver demonstrates no findings of intrahepatic biliary dilatation. IMPRESSION: Unremarkable examination Hepatitis panel nonreactive AST 211, 279, 250, 234 220 ALT 710 930, 1062, 995, 1073 Follow-up with hepatology after discharge 10/06 Hepatitis panel nonreactive Lipid panel unremarkable triglycerides 77, cholesterol 124, Antimicrobial antibody, anti-smooth muscle antibody pending Acute on chronic kidney injury unknown baseline improved BUN 13 creatinine 1.33 Gentle IV fluids Intractable hiccups Thorazine Dysphagia Speech eval10/06 -minced and moist diet along with thin liquids. Microcytic anemia stable Trend H&H hemoglobin 13.2 CAD with stent Hypertension Resume appropriate home Diet Clear liquid diet and advance as tolerated Full code DVT lovenox Critical Care: No Time Spent Managing PTS Care (In Minutes): 35
[2023-10-08] MEDS: PROMETHAZINE 25 MG/SUPP PR PRN (14:33)
[2023-10-08 14:36] LABS: Absolute Lymphocytes (CBC) 1.2 K/uL (0.7-4.9); Hematocrit 48.2 % (39.6-49.0); Lymphocytes % 6.6 % (15.3-44.8); MCV 78.6 fL (80-100); MPV 7.6 fL (7.6-11.3); Platelets 339 thou/uL (152-406); RBC Red Blood Cell Count 6.13 M/uL (4.33-5.43)
[2023-10-08 14:59] LABS: Albumin 2.8 g/dL (3.4-5.0); Protein, Total 6.8 g/dL (6.4-8.2)
[2023-10-08 15:05] LABS: Potassium 4.3 mEq/L (3.5-5.1)
[2023-10-08] MEDS: METOCLOPRAMIDE 10 MG/2mL INJ IV SCH (20:32)
[2023-10-08] MEDS: NA CHLORIDE 0.9% 1,000 ML IV SCH (22:32)
[2023-10-08] MEDS: BACLOFEN 10 MG TAB PO ONE (23:10)
[2023-10-09 06:42] LABS: Absolute Lymphocytes (CBC) 1.2 K/uL (0.7-4.9); Hematocrit 44.9 % (39.6-49.0); Lymphocytes % 7.4 % (15.3-44.8); MPV 7.5 fL (7.6-11.3); Platelets 325 thou/uL (152-406); RBC Red Blood Cell Count 5.75 M/uL (4.33-5.43)
[2023-10-09 06:54] LABS: Protime INR 1.16
[2023-10-09 07:35] LABS: Albumin 2.7 g/dL (3.4-5.0); Ferritin 12.8 ng/mL (26-388); Magnesium 2.5 mg/dL (1.6-2.4); Potassium 4.5 mEq/L (3.5-5.1); Protein, Total 5.9 g/dL (6.4-8.2)
[2023-10-09] MEDS ORDERED: DIAZEPAM 2 MG TABLET PO SCH (09:00)
[2023-10-09] MEDS: DIAZEPAM 5 MG TABLET PO SCH (09:47)
--- NOTE | 2023-10-09 12:31 | RAD REPORT ---
EXAM DESCRIPTION: RAD - Esophagram Only - 10/09/2023 11:49 am CLINICAL HISTORY: trouble swallowing COMPARISON: Cholangiogram dated 10/06/2023 FINDINGS: An esophagram was performed and shows normal bolus formation and normal initiation of swal lowing. Nonspecific, non propulsive tertiary contractions . A small cricopharyngeal bar is present bu t without significant narrowing. Small hiatal hernia noted. The patient was observed swallowing with barium paste and cracker which passed normally into the stomach. No gastroesophageal significant refl ux was elicited. Total fluoroscopy time: 1 minutes 59 seconds Number of images acquired: 6 series IMPRESSION: 1. Nonspecific tertiary contractions. 2. 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 3. Small hiatal hernia.
[2023-10-09 16:57] VITALS: BP 146/84; TEMP 99.2
[2023-10-09 17:46] LABS: Albumin 2.9 g/dL (3.4-5.0); Bilirubin Total 1.1 mg/dL (0.2-1.0); Potassium 4.1 mEq/L (3.5-5.1); Protein, Total 6.9 g/dL (6.4-8.2)
[2023-10-09 21:51] VITALS: O2SAT 96
== END 2023-10-09 19:20 | disposition home or self-care (01) | DRG 872 ==
LOC: ER 18:43 → ERHOLD 20:49 → 4TH 10-05 13:43
PROVIDERS: ADMIT Internal Medicine; ATTEND Hospitalist
PROC: 5A09457 Assistance with Respiratory Ventilation, 24-96 Consecutive Hours, Continuous Positive Airway Pressure (ICD-10-PCS; principal; 2023-10-06)
DX: A41.9 Sepsis, unspecified organism (principal); N10 Acute pyelonephritis; N17.9 Acute kidney failure, unspecified; B17.9 Acute viral hepatitis, unspecified; D50.9 Iron deficiency anemia, unspecified; I10 Essential (primary) hypertension; K44.9 Diaphragmatic hernia without obstruction or gangrene; I25.10 Atherosclerotic heart disease of native coronary artery without angina pectoris; R06.6 Hiccough; R13.10 Dysphagia, unspecified; R74.01 Elevation of levels of liver transaminase levels; Z88.5 Allergy status to narcotic agent; Z95.5 Presence of coronary angioplasty implant and graft; Z11.52 Encounter for screening for COVID-19; Z79.899 Other long term (current) drug therapy
CPT/HCPCS: 0241U; 36415; 74181; 74220; 76705; 80053; 80061; 80074; 80076; 81001; 82103; 82550; 82607; 82728; 82947; 83540; 83605; 83690; 83735; 84100; 84439; 84443; 85025; 85610; 85730; 86015; 86140; 86255; 86664; 86665; 87040; 87389; 92526; 92610; 93005; 94660; 94760; 96365; 96375; 99284; C9113; J0696; J2270; J2405; J2543; J2765; J7030; J7040; J7799; Q0161